=== PATIENT | male | born 1960 | race Caucasian/White ===

== ENCOUNTER 2018-05-24 12:04 | Emergency (ER) | payer BC ==
[2018-05-24] MEDS ORDERED: ACETAMINOPHEN 325 MG TABLET PO ONE (12:57)
[2018-05-24] MEDS ORDERED: IBUPROFEN 600 MG TABLET PO ONE (12:57)
--- NOTE | 2018-05-24 13:34 | RADIOLOGY REPORT (SQ) ---
EXAM DESCRIPTION: FOOT RIGHT COMPLETE COMPLETED DATE/TIME: 05/24/2018 1:26 pm REASON FOR STUDY: leg/foot injury COMPARISON: None. NUMBER OF VIEWS: Three views. TECHNIQUE: AP, lateral and oblique radiographic images acquired of the right foot. LIMITATIONS: None. FINDINGS: MINERALIZATION: Normal. BONES: No acute fracture or dislocation. No worrisome bone lesions. JOINTS: No effusions. SOFT TISSUES: No soft tissue swelling. No foreign body. OTHER: No other significant finding. IMPRESSION: NEGATIVE STUDY OF THE RIGHT FOOT. NO RADIOGRAPHIC EVIDENCE OF ACUTE INJURY. TECHNICAL DOCUMENTATION: JOB ID: [id number] [employer]- All Rights Reserved Reading location - IP/workstation name: [facility]
--- NOTE | 2018-05-24 13:34 | RADIOLOGY REPORT (SQ) ---
EXAM DESCRIPTION: TIBIA FIBULA RIGHT COMPLETED DATE/TIME: 05/24/2018 1:26 pm REASON FOR STUDY: leg/foot injury COMPARISON: None. NUMBER OF VIEWS: Two views. TECHNIQUE: Two radiographic images acquired of the right tibia and fibula to include the knee and an kle in at least one projection. LIMITATIONS: None. FINDINGS: MINERALIZATION: Normal. BONES: Spiral fracture of the proximal fibula. Nondisplaced. SOFT TISSUES: No obvious swelling or foreign body. OTHER: No other significant finding. IMPRESSION: Nondisplaced spiral fracture proximal fibula. TECHNICAL DOCUMENTATION: JOB ID: [id number] [employer]- All Rights Reserved Reading location - IP/workstation name: [email or web address]
--- NOTE | 2018-05-24 13:49 | ER Document Report ---
HPI - HPI Time Seen by Provider: 05/24/18 12:42 Pain Level: 4 Context: Patient is a 58-year-old male who presents to the emergency department with a chief complaint of right leg pain. He stepped in a hole last night around 2200 and internally rotated his right ankle. He complains of lower leg pain. It does hurt for him to walk. He used crutches to get here into the emergency department and used a previous brace to help immobilize the leg. He has not taken any Motrin or Tylenol to help with his symptoms. His past medical history includes a hernia repair and hyperlipidemia. He denies any blood thinner use. - ROS Systems Reviewed and Negative: Yes All other systems reviewed and negative - MUSCULOSKELETAL Musculoskeletal: REPORTS: Extremity pain - DERM Skin Color: Normal Skin Problems: Bruise - Left lateral foot near ankle Past Medical History - Social History Smoking Status: Unknown if Ever Smoked Family History: Reviewed & Not Pertinent - Past Medical History Cardiac Medical History: Denies: Hx Coronary Artery Disease, Hx Heart Attack, Hx Hypertension Pulmonary Medical History: Denies: Hx Asthma, Hx Bronchitis, Hx COPD, Hx Pneumonia Neurological Medical History: Denies: Hx Cerebrovascular Accident, Hx Seizures Musculoskeletal Medical History: Denies Hx Arthritis - Immunizations Hx Diphtheria, Pertussis, Tetanus Vaccination: No Vertical Provider Document - CONSTITUTIONAL Agree With Documented VS: Yes Exam Limitations: No Limitations - INFECTION CONTROL TRAVEL OUTSIDE OF THE [place] IN LAST 30 DAYS: No - HEENT HEENT: Atraumatic, Normocephalic - NECK Neck: Normal Inspection - RESPIRATORY Respiratory: No Respiratory Distress - CARDIOVASCULAR Cardiovascular: Regular Rate Pulses: Normal: Posterior tibial, Dorsalis pedis - MUSCULOSKELETAL/EXTREMETIES Musculoskeletal/Extremeties: Tender - Right lateral lower leg, Edema - Right lateral foot near ankle, Eccymosis - Right lateral foot near ankle - NEURO Level of Consciousness: Awake, Alert, Appropriate Motor/Sensory: No Motor Deficit, No Sensory Deficit - DERM Integumentary: Warm, Dry Course - Re-evaluation Re-evalutation: 05/24/18 13:49 The patient has a nondisplaced proximal fracture of his proximal tibia. I have given the patient the results of his x-ray. He will be placed in a splint and sent to orthopedics on follow-up with orthopedics on Saturday. I suspect patient has a sprained right ankle due to the edema and ecchymosis to the area. Verbal discharge instructions were given to the patient. They verbalized understanding. They are stable for discharge. - Vital Signs Vital signs: Temp Pulse Resp BP Pulse Ox 98.2 F 92 18 146/96 H 97 05/24/18 12:08 05/24/18 12:08 05/24/18 12:08 05/24/18 12:08 05/24/18 12:08 Discharge - Discharge Clinical Impression: Fracture of right proximal fibula Qualifiers: Encounter type: initial encounter Fracture type: closed Fracture morphology: unspecified fracture morphology Qualified Code(s): S82.831A - Other fracture of upper and lower end of right fibula, initial encounter for closed fracture Right ankle sprain Qualifiers: Encounter type: initial encounter Involved ligament of ankle: other ligament Qualified Code(s): S93.491A - Sprain of other ligament of right ankle, initial encounter Condition: Stable Disposition: HOME, SELF-CARE Instructions: Ice Packs ([facility]), Sprained Ankle ([facility]) Additional Instructions: You were seen today in the emergency department after hurting your right leg. You have a fracture to the small bone in your right leg. Please follow-up with orthopedics on Saturday in regards to this visit. Please continue to use your crutches and your brace to help keep pressure off your right leg. You can take acetaminophen 1000 mg and ibuprofen 600 mg every 6 hours as needed for your pain. You also sprained her ankle. You have also been provided an Haile wrap for your ankle. Keep the area elevated, apply ice 20 minutes every 2 hours, and use crutches as needed. Please return if you have worsening pain and swelling, fever greater than 101, you notice spreading redness from the area, or have any other symptoms that are concerning to you. Referrals: SHILO JOHNSON MD [ACTIVE STAFF] - 05/26/18
[2018-05-24 14:09] VITALS: BP 141/83
== END 2018-05-24 14:30 | disposition home or self-care (01) ==
LOC: ER 12:04
DX: S82.444A Nondisplaced spiral fracture of shaft of right fibula, initial encounter for closed fracture (principal); S93.401A Sprain of unspecified ligament of right ankle, initial encounter; X50.0XXA Overexertion from strenuous movement or load, initial encounter
CPT/HCPCS: 99283